=== PATIENT | female | born 2000 | race Caucasian/White ===

== ENCOUNTER → 2024-03-24 14:27 | Outpatient (REF) | payer OTHER, SELFPAY | LOC: PNTC 14:27 | PROVIDERS: ATTENDING PHYSICIAN Obstetrics & Gynecology | DX: O99.210 Obesity complicating pregnancy, unspecified trimester (principal) | CPT/HCPCS: 76805 ==

== ENCOUNTER → 2024-04-27 13:09 | Outpatient (REF) | payer OTHER, SELFPAY | LOC: PNTC 13:09 | PROVIDERS: ATTENDING PHYSICIAN Obstetrics & Gynecology | DX: O99.210 Obesity complicating pregnancy, unspecified trimester (principal); O35.5XX0 Maternal care for (suspected) damage to fetus by drugs, not applicable or unspecified | CPT/HCPCS: 76811 ==